=== PATIENT | female | born 1975 | race American Indian/Alaskan Native ===

== ENCOUNTER 2017-07-15 14:26 | Emergency (ER) | payer MEDICAID ==
--- NOTE | 2017-07-15 15:25 | ED PDOC ---
Lower Extremity Pain/Injury Time Seen by Provider: 07/15/17 15:02 Chief Complaint (Nursing): Back Pain Chief Complaint (Provider): Left leg pain History Per: Patient History/Exam Limitations: no limitations Current Symptoms Are (Timing): Still Present Additional Complaint(s): 42 year old female presented to ED with left leg pain which has been worsening recently. Patient was diagnosed with sciatica prior to arrival. Patient had a [facility] visit in [place] and visited her PCP, Dr. Jo, due to uncontrolled pain. From her visits, she was prescribed percocet on June 22 and 16 tablets of percocet on July 06, 2017. PCP: Earle Davis Past Medical History Reviewed: Historical Data, Nursing Documentation, Vital Signs Vital Signs: Last Vital Signs Temp 98.1 F 07/15/17 14:42 Pulse 115 H 07/15/17 14:42 Resp 22 07/15/17 14:42 BP 153/90 H 07/15/17 14:42 Pulse Ox 99 07/15/17 14:42 - Medical History PMH: No Chronic Diseases - Surgical History Surgical History: No Surg Hx - Family History Family History: States: Unknown Family Hx - Social History Current smoker - smoking cessation education provided: No Alcohol: Social Drugs: Denies - Home Medications Home Medications: Ambulatory Orders Medication Instructions Recorded Methylprednisolone [Medrol Dose 4 mg PO DAILY #21 mg 07/15/17 Pack (21 tabs)] - Allergies Allergies/Adverse Reactions: Allergies Allergy/AdvReac Type Severity Reaction Status Date / Time cephalexin [From Keflex] Allergy ITCHING Verified 07/15/17 14:42 Review of Systems ROS Statement: Except As Marked, All Systems Reviewed And Found Negative Musculoskeletal: Positive for: Leg Pain (left ) Physical Exam - Reviewed Nursing Documentation Reviewed: Yes Vital Signs Reviewed: Yes - Physical Exam Appears: Positive for: Non-toxic. Negative for: No Acute Distress (moderate painful distress) Head Exam: Positive for: ATRAUMATIC, NORMAL INSPECTION, NORMOCEPHALIC Skin: Positive for: Normal Color, Warm, Dry Eye Exam: Positive for: Normal appearance Neck: Positive for: Normal, Painless ROM Extremity: Positive for: Normal ROM, Tenderness (mild tenderness to left gluteal region and left paralumbar region) - ECG O2 Sat by Pulse Oximetry: 99 (RA) Pulse Ox Interpretation: Normal Medical Decision Making Medical Decision Making: Initial Impression: left leg pain Initial Plan: Toradol 30mg IM Scribe Attestation: Documented by Ole Toure acting as a scribe for Raul OWUSU. Provider Scribe Attestation: All medical record entries made by the Scribe were at my direction and personally dictated by me. I have reviewed the chart and agree that the record accurately reflects my personal performance of the history, physical exam, medical decision making, and the department course for this patient. I have also personally directed, reviewed, and agree with the discharge instructions and disposition. Disposition - Clinical Impression Clinical Impression: Sciatica - Patient ED Disposition Is Patient to be Admitted: No - Disposition Referrals: [facility] [Outside] Disposition: Routine/Home Disposition Time: 16:25 Condition: IMPROVED Prescriptions: Methylprednisolone [Medrol Dose Pack (21 tabs)] 4 mg PO DAILY #21 mg Instructions: Sciatica (DC) Forms: [facility] ([place]), [facility] ED School/Work Excuse
[2017-07-15 16:26] VITALS: BP 137/82; PULSE 91; RESP 15; TEMP 98.5
[2017-07-15 16:29] VITALS: O2SAT 99
== END 2017-07-15 16:26 | disposition home or self-care (01) ==
LOC: H.ER 14:26
DX: M54.32 Sciatica, left side (principal)
CPT/HCPCS: 96372; 99283; J1885